=== PATIENT | female | born 1960 | race Caucasian/White ===

== ENCOUNTER 2019-10-12 23:31 | Emergency (ER) | payer MEDICARE, MEDICAID ==
[~2019-10-12] VITALS: Ht 162.6 cm; Wt 72.6 kg
[2019-10-12] MEDS ORDERED: GENVOYA TABLET1 EACH PO (23:46)
[2019-10-12] MEDS ORDERED: VALTREX1000 MG PO (23:47)
[2019-10-12] MEDS ORDERED: VESICARE 5 MG TA5 M1 PO (23:47)
[2019-10-12] MEDS ORDERED: BONIVA150 MG PO (23:48)
[2019-10-12] MEDS ORDERED: ALPRAZOLAM XR3 MG PO (23:49)
[2019-10-12] MEDS ORDERED: OXYCODONE (23:50)
[2019-10-13] MEDS ORDERED: ROXICODONE15 M1 PO (01:05)
[2019-10-13 01:15] VITALS: BP 110/88
== END 2019-10-13 01:15 | disposition home or self-care (01) ==
LOC: M.ERS 23:31
DX: M25.551 Pain in right hip (principal); M25.552 Pain in left hip; Z76.0 Encounter for issue of repeat prescription

== ENCOUNTER 2019-10-18 17:54 | Emergency (ER) | payer MEDICARE, MEDICAID ==
[~2019-10-18] VITALS: Ht 162.6 cm; Wt 72.6 kg
[~2019-10-18 17:54] MED LIST: ALPRAZOLAM XR3 MG PO; BONIVA150 MG PO; GENVOYA TABLET1 EACH PO; OXYCODONE; ROXICODONE15 M1 PO; VALTREX1000 MG PO; VESICARE 5 MG TA5 M1 PO
[2019-10-18 19:16] VITALS: BP 133/79
== END 2019-10-18 19:16 | disposition home or self-care (01) ==
LOC: M.ERS 17:54
DX: G89.29 Other chronic pain (principal); Z76.0 Encounter for issue of repeat prescription; Z96.643 Presence of artificial hip joint, bilateral